=== PATIENT | female | born 1975 | race African-American/Black ===

== ENCOUNTER 2021-11-15 13:58 | Emergency (ER) | payer OTHER ==
[2021-11-15 14:39] VITALS: TEMP 98.4; BMI 34.5
[2021-11-15] MEDS ORDERED: SODIUM CHLORIDE 0.9% 500 ML INFUS.BAG IV ONE (15:42)
[2021-11-15] MEDS ORDERED: ACETAMINOPHEN 1000 MG/100 ML BAG IVPB ONE (15:51)
[2021-11-15] MEDS ORDERED: ACETAMINOPHEN INJECTION 100 ML IVPB ONE (16:07)
[2021-11-15 16:22] LABS: BASO % 0.5 % (0-2.0); EOS % 4.7 % (0-4.5); HEMATOCRIT 35.1 % (32.4-45.2); HEMOGLOBIN 11.3 GM/dL (10.7-15.3); LYMPH % 22.5 % (8-40); MCH 22.7 pg (25.7-33.7); MCHC 32.1 g/dl (32.0-36.0); MEAN CELL VOLUME 70.6 fl (80-96); MEAN PLT VOLUME 7.4 fl (7.5-11.1); MONO % 8.8 % (3.8-10.2); NEUT % 63.5 % (42.8-82.8); PLATELET COUNT 460 10^3/uL (134-434); RBC 4.96 M/mm3 (3.60-5.2); RDW 16.1 % (11.6-15.6); WHITE BLOOD COUNT 8.8 K/mm3 (4.0-10.0)
[2021-11-15 16:37] LABS: CALCIUM 9.4 mg/dL (8.5-10.1)
[2021-11-15 16:38] LABS: ALBUMIN 4.1 g/dl (3.4-5.0); BLOOD UREA NITROGEN 9.6 mg/dL (7-18)
[2021-11-15 16:41] LABS: CREATININE 0.8 mg/dL (0.55-1.3)
[2021-11-15 16:42] LABS: BILIRUBIN,TOTAL 0.4 mg/dL (0.2-1)
[2021-11-15 16:43] LABS: TOT PROT 7.6 g/dl (6.4-8.2)
[2021-11-15 17:47] VITALS: BP 131/82; PULSE 99
[2021-11-15 18:19] LABS: EPI CELLS >36 /uL (0-25.1); HYALINE CASTS 0 /uL (0-3.1); URINE APPEARANCE CLEAR; URINE BACTERIA 898 /uL (0-1359); URINE BILIRUBIN NEGATIVE (NEGATIVE); URINE COLOR YELLOW; URINE GLUCOSE (UA) NEGATIVE (NEGATIVE); URINE KETONE NEGATIVE (NEGATIVE); URINE LEUK ESTERASE 1+ (NEGATIVE); URINE NITRITE NEGATIVE (NEGATIVE); URINE PROTEIN NEGATIVE (NEGATIVE); URINE RBC 4 /uL (0-23.9); URINE UROBILINOGEN 0.2 mg/dL (0.2-1.0); URINE WBC 20 /uL (0-25.8)
== END 2021-11-15 18:46 | disposition home or self-care (01) ==
LOC: JER 13:58
PROC: 3E0333Z Introduction of Anti-inflammatory into Peripheral Vein, Percutaneous Approach (ICD-10-PCS; principal; 2021-11-15)
DX: R20.2 Paresthesia of skin (principal)
CPT/HCPCS: 36415; 80053; 81003; 84439; 84443; 84703; 85025; 85379; 87086; 87186; 93005; 93010; 93971-TC; 99285-25